=== PATIENT | female | born 1960 | race Caucasian/White ===

== ENCOUNTER 2021-08-20 20:00 | Inpatient (IN) | payer MEDICAID, SELFPAY ==
[2021-08-20 21:11] VITALS: BMI 20.1
[2021-08-20] MEDS: hyDROXYzine 25 mg Capsule 50 MG PO (21:58)
[2021-08-20] MEDS: trazodone 50 mg Tablet PO (21:58)
[2021-08-20 22:00] VITALS: BP 106/75; PULSE 118; RESP 20; TEMP 36.6; O2SAT 95
--- NOTE | 2021-08-20 22:00 | PC.NURSE ---
PT REQUESTEING MEDS FOR SLEEP AND ANXIETY. TRAZODONE 50MG PO FOR SLEEP AND VISTARIL 50MG PO FOR ANXIETY GIVEN.
--- NOTE | 2021-08-20 23:00 | PC.NURSE ---
PT RESTING QUIETLY WITH BOTH EYES CLOSED.
[2021-08-21 06:00] VITALS: BP 120/80; PULSE 105; RESP 20; TEMP 36.9; O2SAT 97
[2021-08-21] MEDS: tacrolimus 0.5 mg Capsule 2 MG PO ×2 (08:29→16:10)
[2021-08-21] MEDS: BuSPIRONE 10 mg Tablet 15 MG PO ×2 (08:29→16:11)
[2021-08-21] MEDS: folic acid 1 mg Tablet PO (08:30)
[2021-08-21] MEDS: duloxetine 60 mg Capsule PO (08:30)
[2021-08-21] MEDS: multivitamin therapeutic Tablet 1 TAB PO (08:30)
[2021-08-21] MEDS: spironolactone 25 mg Tablet PO ×2 (08:30→16:13)
[2021-08-21] MEDS: thiamine 100 mg Tablet PO (08:30)
[2021-08-21] MEDS: potassium chloride ER 10 mEq Tablet PO (08:30)
[2021-08-21 14:00] VITALS: BP 133/92; PULSE 117; RESP 20; TEMP 36.5; O2SAT 97
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
[2021-08-21] MEDS: acetaminophen 325 mg Tablet 650 MG PO ×2 (16:11→23:40)
[2021-08-21] MEDS: nicotine 21 mg Patch 1 PATCH TRANSDERMA (16:12)
[2021-08-21] MEDS: polyethylene glycol 3350 Pkt 17 gm PO (18:10)
[2021-08-21] MEDS: TRAMadol 50 mg Tablet 100 MG PO (20:15)
[2021-08-21] MEDS: tizanidine 4 mg Tablet PO (20:15)
[2021-08-21 20:23] VITALS: BP 141/111; PULSE 106; RESP 18; TEMP 36.8; O2SAT 98
[2021-08-21] MEDS: trazodone 50 mg Tablet PO (23:41)
--- NOTE | 2021-08-21 23:43 | PC.NURSE ---
Patient c/o pain below sternum, rcvd new one time dose of tramadol 100mg PO and tizanidine 4mg, given as ordered at approx 8pm. Patient came to nurses station at 1140 pm c/o of continued pain 9/10 and trouble sleeping, given Acetaminophen 650mg and Trazodone 50mg PO as ordered.
[2021-08-22 06:00] VITALS: BP 134/57; PULSE 90; RESP 18; TEMP 36.6; O2SAT 96
[2021-08-22] MEDS: potassium chloride ER 10 mEq Tablet PO (09:20)
[2021-08-22] MEDS: BuSPIRONE 10 mg Tablet 15 MG PO ×2 (09:20→17:52)
[2021-08-22] MEDS: multivitamin therapeutic Tablet 1 TAB PO (09:20)
[2021-08-22] MEDS: folic acid 1 mg Tablet PO (09:20)
[2021-08-22] MEDS: tacrolimus 0.5 mg Capsule 2 MG PO ×2 (09:20→17:53)
[2021-08-22] MEDS: spironolactone 25 mg Tablet PO ×2 (09:20→17:52)
[2021-08-22] MEDS: duloxetine 60 mg Capsule PO (09:21)
[2021-08-22] MEDS: thiamine 100 mg Tablet PO (09:21)
[2021-08-22] MEDS: polyethylene glycol 3350 Pkt 17 gm PO ×2 (09:21→17:53)
[2021-08-22 14:00] VITALS: BP 142/92; PULSE 101; RESP 20; TEMP 36.4; O2SAT 99
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
[2021-08-22 20:26] VITALS: BP 182/108; PULSE 91; RESP 17; TEMP 37.1; O2SAT 97
[2021-08-22] MEDS: docusate sodium 100 mg Capsule 200 MG PO (21:32)
[2021-08-22] MEDS: trazodone 50 mg Tablet PO (21:34)
[2021-08-22] MEDS: tizanidine 4 mg Tablet PO (21:35)
[2021-08-22] MEDS: hyDROXYzine 25 mg Capsule 50 MG PO (21:35)
[2021-08-23] MEDS: OLANZapine 5 mg ODT PO (00:36)
[2021-08-23] MEDS: acetaminophen 325 mg Tablet 650 MG PO ×3 (00:36→21:57)
[2021-08-23 05:32] VITALS: BP 182/108; PULSE 91; RESP 17; TEMP 37.1; O2SAT 97
[2021-08-23] MEDS: tacrolimus 0.5 mg Capsule 2 MG PO ×2 (10:03→18:14)
[2021-08-23] MEDS: duloxetine 60 mg Capsule PO (10:04)
[2021-08-23] MEDS: BuSPIRONE 10 mg Tablet 15 MG PO ×2 (10:04→18:15)
[2021-08-23] MEDS: spironolactone 25 mg Tablet PO ×2 (10:05→18:14)
[2021-08-23] MEDS: multivitamin therapeutic Tablet 1 TAB PO (10:06)
[2021-08-23] MEDS: folic acid 1 mg Tablet PO (10:06)
[2021-08-23] MEDS: thiamine 100 mg Tablet PO (10:07)
[2021-08-23] MEDS: potassium chloride ER 10 mEq Tablet PO (10:07)
[2021-08-23 14:00] VITALS: PULSE 121; RESP 17; TEMP 37.1; O2SAT 99
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
[2021-08-23] MEDS: tizanidine 4 mg Tablet PO (17:04)
[2021-08-23 20:52] VITALS: BP 160/102; PULSE 97; RESP 18; O2SAT 98
[2021-08-23] MEDS: hyDROXYzine 25 mg Capsule PO (21:57)
[2021-08-23] MEDS: trazodone 50 mg Tablet PO (21:57)
--- NOTE | 2021-08-23 22:02 | PC.NURSE ---
Retook pts blood pressure and it was 187/111. Charge nurse was notified.
[2021-08-24] MEDS: tizanidine 4 mg Tablet PO (00:08)
[2021-08-24] MEDS: OLANZapine 5 mg ODT PO (00:08)
--- NOTE | 2021-08-24 03:04 | PC.NURSE ---
Patient received Tylenol for generalized pain and vistaril for anxiety. Both were effective.
--- NOTE | 2021-08-24 03:05 | PC.NURSE ---
Patient received zyprexa for anxiety and zanaflex for body aches.
[2021-08-24 06:00] VITALS: BP 162/107; PULSE 97; RESP 16; TEMP 37.1; O2SAT 98
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
[2021-08-24] MEDS: duloxetine 60 mg Capsule PO (09:25)
[2021-08-24] MEDS: spironolactone 25 mg Tablet PO (09:26)
[2021-08-24] MEDS: multivitamin therapeutic Tablet 1 TAB PO (09:26)
[2021-08-24] MEDS: folic acid 1 mg Tablet PO (09:26)
[2021-08-24] MEDS: BuSPIRONE 10 mg Tablet 15 MG PO (09:26)
[2021-08-24] MEDS: potassium chloride ER 10 mEq Tablet PO (09:27)
[2021-08-24] MEDS: tacrolimus 0.5 mg Capsule 2 MG PO (09:27)
[2021-08-24] MEDS: thiamine 100 mg Tablet PO (09:28)
[2021-08-24 09:31] VITALS: BP 162/107; PULSE 97; RESP 16; TEMP 37.1; O2SAT 98
== END 2021-08-24 11:57 | disposition home or self-care (01) | DRG 918 ==
PROVIDERS: Admitting Provider Psychiatry & Neurology Psychiatry; Visit Provider Psychiatry & Neurology Psychiatry
DX: T50.902A Poisoning by unspecified drugs, medicaments and biological substances, intentional self-harm, initial encounter (principal); R45.851 Suicidal ideations; Z94.4 Liver transplant status; F10.229 Alcohol dependence with intoxication, unspecified; F17.210 Nicotine dependence, cigarettes, uncomplicated; Z86.19 Personal history of other infectious and parasitic diseases; F41.9 Anxiety disorder, unspecified; F32.A Depression, unspecified
CPT/HCPCS: 97150; 97165; J7507